=== PATIENT | female | born 1990 | race African-American/Black ===

== ENCOUNTER 2023-05-14 19:00 | Inpatient (IN) | payer BC ==
[2023-05-14] MEDS ORDERED: SODIUM CHLORIDE 1,000 ML IV STA (19:50)
[2023-05-14] MEDS ORDERED: DEXTROSE 5%-LACTATED RINGERS 1,000 ML IV SCH (20:00)
[2023-05-14 20:15] VITALS: BMI 29.4
[2023-05-14] MEDS: MISOPROSTOL 100 MCG TABLET PV SCH (21:00)
[2023-05-14 21:33] LABS: BASO % 0.4 % (0-2.0); EOS % 0.3 % (0-4.5); HEMATOCRIT 41.9 % (32.4-45.2); HEMOGLOBIN 14.1 GM/dL (10.7-15.3); LYMPH % 24.1 % (8-40); MCH 31.4 pg (25.7-33.7); MCHC 33.6 g/dl (32.0-36.0); MEAN CELL VOLUME 93.5 fl (80-96); MONO % 10.9 % (3.8-10.2); NEUT % 64.3 % (42.8-82.8); PLATELET COUNT 254 10^3/uL (134-434); RBC 4.48 M/mm3 (3.60-5.2); RDW 14.6 % (11.6-15.6); WHITE BLOOD COUNT 6.2 K/mm3 (4.0-10.0)
[2023-05-14 21:41] LABS: INR 0.95 (0.83-1.09)
[2023-05-14 21:44] LABS: ACTIVATED PTT 27.9 SECONDS (25.2-36.5)
[2023-05-14 21:57] LABS: ALBUMIN 2.9 g/dl (3.4-5.0); BLOOD UREA NITROGEN 5.9 mg/dL (7-18); CALCIUM 8.9 mg/dL (8.5-10.1)
[2023-05-14 22:01] LABS: CREATININE 0.7 mg/dL (0.55-1.3)
[2023-05-14 22:02] LABS: BILIRUBIN,TOTAL 0.2 mg/dL (0.2-1)
[2023-05-15] MEDS ORDERED: morphine SULFATE 4 MG/ML VIAL IVPB ONE (01:16)
[2023-05-15] MEDS ORDERED: morphine CARPU-JECT 8 MG/1 ML DISP.SYRIN IVPB ONE ×2 (01:16→05:19)
[2023-05-15] MEDS ORDERED: morphine SULFATE 4 MG/ML VIAL ONE (01:28)
[2023-05-15] MEDS: MISOPROSTOL 100 MCG TABLET PV SCH ×3 (05:22→20:14)
[2023-05-15] MEDS ORDERED: LIDOCAINE HCL 1% PRESERVATIVE FREE - 30ML VIAL ONE (05:51)
[2023-05-15] MEDS ORDERED: OXYTOCIN 20 UNITS in 0.9% NS 20 UNIT/1,000 ML INFUS.BAG IV ONE (05:51)
[2023-05-15] MEDS ORDERED: BENZOCAINE 28 GM HEMORRHOIDAL OINTMENT TP PRN (07:36)
[2023-05-15] MEDS ORDERED: ACETAMINOPHEN 325 MG TABLET (FP) PO PRN (07:36)
[2023-05-15] MEDS ORDERED: WITCH HAZEL 50% (TUCKS) 40 PAD/JAR PAD TP PRN (07:36)
[2023-05-15] MEDS ORDERED: OXYTOCIN 20 UNITS in 0.9% NS 20 UNIT/1,000 ML INFUS.BAG IV SCH (07:45)
[2023-05-15 08:32] LABS: CORD BASE EXCESS -7.4 mmol/L (0-2); CORD HCO3 20.2 mmHg (20-29); CORD PCO2 47.8 mmHg (30-78); CORD pH 7.243 (7.14-7.44)
[2023-05-15 08:34] LABS: CORD BASE EXCESS -7.9 mmol/L (0-2); CORD HCO3 19.6 mmHg (20-29); CORD pH 7.238 (7.14-7.44)
[2023-05-15] MEDS: IBUPROFEN 600 MG TABLET (FP) PO PRN ×2 (10:23→18:50)
[2023-05-15] MEDS: PRENATAL VITAMINS W/ FOLIC ACID TABLET (FP) PO SCH (10:23)
[2023-05-15 17:43] VITALS: RESP 18
[2023-05-16 08:17] LABS: BASO % 0.1 % (0-2.0); EOS % 0.5 % (0-4.5); HEMATOCRIT 32.4 % (32.4-45.2); HEMOGLOBIN 10.8 GM/dL (10.7-15.3); LYMPH % 20.5 % (8-40); MCH 31.5 pg (25.7-33.7); MCHC 33.4 g/dl (32.0-36.0); MEAN CELL VOLUME 94.3 fl (80-96); MEAN PLT VOLUME 8.7 fl (7.5-11.1); MONO % 8.3 % (3.8-10.2); NEUT % 70.6 % (42.8-82.8); PLATELET COUNT 210 10^3/uL (134-434); RBC 3.43 M/mm3 (3.60-5.2); RDW 14.6 % (11.6-15.6); WHITE BLOOD COUNT 9.5 K/mm3 (4.0-10.0)
[2023-05-16] MEDS: PRENATAL VITAMINS W/ FOLIC ACID TABLET (FP) PO SCH (10:35)
[2023-05-16] MEDS: IBUPROFEN 600 MG TABLET (FP) PO PRN ×2 (10:35→21:00)
[2023-05-17 09:13] VITALS: BP 121/81; PULSE 78; TEMP 98
[2023-05-17] MEDS: PRENATAL VITAMINS W/ FOLIC ACID TABLET (FP) PO SCH (09:52)
[2023-05-17] MEDS: IBUPROFEN 600 MG TABLET (FP) PO PRN (09:52)
== END 2023-05-17 13:55 | disposition home or self-care (01) | DRG 807 ==
LOC: JLDR 19:00 → J3W 05-15 09:10
PROVIDERS: ADMIT Obstetrics & Gynecology Maternal & Fetal Medicine; ATTEND Obstetrics & Gynecology Maternal & Fetal Medicine
PROC: 10E0XZZ Delivery of Products of Conception, External Approach (ICD-10-PCS; principal; 2023-05-14)
PROC: 3E0DXGC Introduction of Other Therapeutic Substance into Mouth and Pharynx, External Approach (ICD-10-PCS; 2023-05-14)
PROC: 0HQ9XZZ Repair Perineum Skin, External Approach (ICD-10-PCS; 2023-05-14)
DX: O41.03X0 Oligohydramnios, third trimester, not applicable or unspecified (principal); Z37.0 Single live birth; O70.0 First degree perineal laceration during delivery; Z3A.40 40 weeks gestation of pregnancy
CPT/HCPCS: 36415; 36600; 80053; 82803; 85025; 85610; 85730; 86780; 86850; 86900; 86901; 88307-TC